=== PATIENT | female | born 1950 ===

== ENCOUNTER → 2020-02-27 | Outpatient (CLI) | payer OTHER ==
[2020-02-27 15:15] LABS: CALCIUM 9.9 mg/dL (8.5-10.1); CREATININE 1.3 mg/dL (0.6-1.0); GFR 40.7
[2020-02-27 15:21] LABS: ALBUMIN 3.4 g/dL (3.4-5.0); ALBUMIN/GLOBULIN RATIO 0.8 (1.0-1.7); TOTAL BILIRUBIN 0.4 mg/dL (0.2-1.0); TOTAL PROTEIN 7.6 g/dL (6.4-8.2)
[2020-02-28 02:08] LABS: AFPT MARKER 3.8 ng/mL (0.0-8.3); CA 125 11.6 U/mL (0.0-38.1); ESTRADIOL LEVEL <5.0 pg/mL (.)
[2020-02-28 06:12] LABS: CA 27.29 5.8 U/mL (0.0-38.6)
[2020-02-28 15:13] LABS: CEA 2.5 ng/mL (0.0-4.7)
== END | disposition home or self-care (01) ==
LOC: ONCLAB 14:18
PROVIDERS: ATTEND Internal Medicine Hematology & Oncology
DX: R93.41 Abnormal radiologic findings on diagnostic imaging of renal pelvis, ureter, or bladder (principal)
CPT/HCPCS: 80053; 82105; 82378; 82670; 83520; 83615; 84702; 86300; 86301; 86304; 86336; 84704